=== PATIENT | female | born 1935 | race African-American/Black ===

== ENCOUNTER → 2021-01-21 | Day surgery (SDC) | payer MEDICARE ==
[~2021-01-21] MED LIST: ALLOPURINOL100 MG PO; AMARYL2 MG PO; AMIODARONE HCL200 MG PO; ASPIRIN CHEWABL81 MG PO; ASPIRIN EC81 MG PO; BUMEX1 MG PO; CLARITIN10 M2 PO; CLARITIN10 MG PO; CLOPIDOGREL75 MG PO; COZAAR 25MG TAB25 MG PO; ELIQUIS5 MG PO; LEVAQUIN500 MG PO; LINZESS145 MCG PO; LINZESS290 MCG PO; LIPITOR40 MG PO; LOSARTAN POTASS50 MG PO; MACRODANTIN50 MG PO; METOPROLOL SUCC25 MG PO; NORCO 5-325 TA1 EACH PO; PACERONE 200MG200 MG PO; PROAIR HFA8.5 GM INH; ROSUVASTATIN CA40 MG PO; STOOL SOFTENER100 M1 PO; STOOL SOFTENER50 MG PO; TOPROL XL 25MG25 MG PO; ULORIC40 MG PO; VENTOLIN HFA IN18 GM INH; ZOFRAN8 MG PO
== END | disposition home or self-care (01) ==
LOC: FAS 11:19
DX: H26.9 Unspecified cataract (principal); I10 Essential (primary) hypertension; E78.5 Hyperlipidemia, unspecified; J45.909 Unspecified asthma, uncomplicated; Z95.0 Presence of cardiac pacemaker; Z88.0 Allergy status to penicillin
CPT/HCPCS: J2250; V2632

== ENCOUNTER → 2021-02-18 | Day surgery (SDC) | payer MEDICARE ==
[~2021-02-18] VITALS: Ht 149.9 cm; Wt 72.6 kg
== END | disposition home or self-care (01) ==
LOC: FAS 13:30
DX: E11.36 Type 2 diabetes mellitus with diabetic cataract (principal); H26.491 Other secondary cataract, right eye; M19.90 Unspecified osteoarthritis, unspecified site; I11.9 Hypertensive heart disease without heart failure; Z88.0 Allergy status to penicillin; Z79.01 Long term (current) use of anticoagulants; Z79.899 Other long term (current) drug therapy